=== PATIENT | female | born 1985 | race Caucasian/White ===

== ENCOUNTER 2016-10-21 09:50 | Emergency (ER) | payer OTHER ==
[2016-10-21 11:17] LABS: BASOPHIL 0 % (0-2); EOSINOPHIL 0.5 % (0-5); HCT 34.4 % (37.0-47.0); HGB 12.1 g/dl (12.5-16.0); LYMPHOCYTE 13.7 % (15-48); MCH 31.5 pg (25.0-31.0); MCHC 35.2 g/dL (32.0-36.0); MCV 89.6 fL (78.0-100.0); MONOCYTE 3.8 % (0-12); PLT 164 K/uL (150-400); RBC 3.84 M/uL (4.20-5.40); RDW 14.2 % (11.5-14.0); WBC 10.7 K/uL (4.0-10.5)
[2016-10-21 11:17] LABS: BILIRUBIN NEGATIVE (NEGATIVE); BLOOD NEGATIVE Ery/uL (NEGATIVE); CLARITY CLEAR (CLEAR); COLOR YELLOW (YELLOW); GLUCOSE (U) 1+ mg/dL (NORMAL); KETONE (U) NEGATIVE (NEGATIVE); LEUKOCYTES NEGATIVE Leu/uL (NEGATIVE); NITRITE NEGATIVE (NEGATIVE); PROTEIN NEGATIVE (NEGATIVE); UROBILINOGEN 0.2 mg/dL (0.2-1.0); pH 6.5 (5.0-9.0)
[2016-10-21 11:21] LABS: ALBUMIN 3.2 g/dL (3.5-5.0); BILIRUBIN - TOTAL 0.2 mg/dL (0.1-1.0); CREATININE 0.4 mg/dL (0.5-1.0); GLOBULIN (CALCULATION) 3.5 g/dL (2.2-4.2); TOTAL PROTEIN 6.7 g/dL (6.4-8.3)
== END 2016-10-21 15:39 | disposition home or self-care (01) ==
LOC: FER 09:50
PROVIDERS: Internal Medicine
DX: O99.89 Other specified diseases and conditions complicating pregnancy, childbirth and the puerperium (principal); R06.00 Dyspnea, unspecified; R11.10 Vomiting, unspecified; Z98.84 Bariatric surgery status; Z3A.01 Less than 8 weeks gestation of pregnancy
CPT/HCPCS: 36415; 78579; 78580; 80053; 81003; 85025; 85379; 93005

== ENCOUNTER 2021-03-26 16:05 | Emergency (ER) | payer OTHER ==
[~2021-03-26 16:05] MED LIST: FEOSOL325 MG PO; FOLGARD TABLET1 EACH PO; HCTZ25 MG PO; ZOFRAN4 MG PO; ZOLOFT50 MG PO; [UNRECOGNIZED DRUG - OTHER]
[2021-03-26 17:15] LABS: BASOPHIL 0.3 % (0-2); EOSINOPHIL 1.2 % (0-5); HCT 36.1 % (37.0-47.0); HGB 12.6 g/dl (12.5-16.0); LYMPHOCYTE 26.3 % (15-48); MCH 30.7 pg (25.0-31.0); MCHC 34.9 g/dL (32.0-36.0); MONOCYTE 6.3 % (0-12); MPV 10.1 fL (6.0-9.5); NEUTROPHIL 65.6 % (41-80); NRBC 0; PLT 155 K/uL (150-400); RDW 12.1 % (11.5-14.0); WBC 7.5 K/uL (4.0-10.5)
[2021-03-26 17:25] LABS: BILIRUBIN NEGATIVE (NEGATIVE); BLOOD TRACE-INTACT Ery/uL (NEGATIVE); CLARITY CLEAR (CLEAR); COLOR YELLOW (YELLOW); GLUCOSE (U) TRACE mg/dL (NORMAL); LEUKOCYTES NEGATIVE Leu/uL (NEGATIVE); NITRITE NEGATIVE (NEGATIVE); PROTEIN NEGATIVE (NEGATIVE); SPECIFIC GRAVITY >=1.030 (1.001-1.030); UROBILINOGEN 0.2 mg/dL (0.2-1.0); pH 5.5 (5.0-9.0)
[2021-03-26 17:34] LABS: BACTERIA 2+; URINARY WBC RARE
[2021-03-26 17:41] LABS: ALBUMIN 3.2 g/dL (3.4-5.0); BILIRUBIN - TOTAL 1.1 mg/dL (0.2-1.0); CREATININE 0.75 mg/dL (0.51-0.95); GLOBULIN (CALCULATION) 4.1 g/dL; POTASSIUM 3.7 mmol/L (3.5-5.1); TOTAL PROTEIN 7.3 g/dL (6.4-8.2)
== END 2021-03-26 19:53 | disposition home or self-care (01) ==
LOC: FER 16:05
PROVIDERS: Emergency Medicine
DX: R07.89 Other chest pain (principal); E11.9 Type 2 diabetes mellitus without complications
CPT/HCPCS: 36415; 71045; 80053; 81001; 83735; 84443; 84484; 85025; 85379; 93005